=== PATIENT | female | born 2000 | race Caucasian/White ===

== ENCOUNTER 2022-06-12 11:05 | Emergency (ER) | payer SELFPAY ==
[~2022-06-12] VITALS: Ht 162.6 cm; Wt 77.1 kg
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
[2022-06-12] MEDS ORDERED: oxyCODONE/APAP (5/325 MG) 1 UDTAB TABLET ONE (11:37)
--- NOTE | 2022-06-12 11:50 | NUR ---
URINE SAMPLE SENT TO LAB
--- NOTE | 2022-06-12 11:58 | NUR ---
PATIENT TAKEN TO CT VIA [facility]
[2022-06-12] MEDS ORDERED: oxyCODONE/APAP (5/325 MG) 1 UDTAB TABLET PO ONE (12:00)
--- NOTE | 2022-06-12 12:07 | NUR ---
PT RETURNED FROM RADIOLOGY
--- NOTE | 2022-06-12 12:57 | NUR ---
CALLED [facility] [phone] OPTION 6 LEFT VM TO CALL US BACK.
[2022-06-12] MEDS ORDERED: CEPH500C2 PO (12:59)
[2022-06-12] MEDS ORDERED: HYDR-3972 PO (12:59)
--- NOTE | 2022-06-12 13:22 | NUR ---
ice packs provided to pt as requested
[2022-06-12] MEDS ORDERED: HYDROCODONE/APAP 5/325MG TABLET ONE (14:41)
--- NOTE | 2022-06-12 14:55 | NUR ---
Patient discharged to home in stable condition. Written and verbal after care instructions given. Patient verbalizes understanding of instruction.
[2022-06-12 14:57] VITALS: BP 130/70
[2022-06-12] MEDS ORDERED: HYDROCODONE/APAP 5/325MG TABLET PO ONE (15:00)
== END 2022-06-12 14:55 | disposition home or self-care (01) ==
LOC: ER 11:12
DX: S02.32XA Fracture of orbital floor, left side, initial encounter for closed fracture (principal); W22.8XXA Striking against or struck by other objects, initial encounter; Y93.89 Activity, other specified; Y92.89 Other specified places as the place of occurrence of the external cause; Y99.8 Other external cause status
CPT/HCPCS: 70450-TC; 70486-TC; 84703-TC